=== PATIENT | female | born 1950 | race Caucasian/White ===

== ENCOUNTER 2017-09-21 10:43 | Outpatient (CLI) | payer MEDICARE ==
--- NOTE | 2017-09-21 13:34 | ULT ---
RIGHT UPPER QUADRANT SONOGRAM: HISTORY: Liver cysts. COMPARISON: 02/14/17. FINDINGS: The gallbladder has a normal appearance without evidence of stones. The common duct is 0.5 cm diamet er. Multiple cysts are again demonstrated throughout the hepatic parenchyma. The largest measures u p to 8.1 x 7.1 cm greatest diameters. No solid masses are visible. No free fluid. IMPRESSION: 1. No evidence of gallstones or biliary obstruction. 2. Large hepatic cysts appear stable compared to the previous exam. POS: [facility]
== END 2017-09-21 10:44 | disposition home or self-care (01) ==
LOC: ULT 10:43
PROVIDERS: ATTEND Internal Medicine Gastroenterology
DX: K76.89 Other specified diseases of liver (principal)
CPT/HCPCS: 76705